=== PATIENT | female | born 1940 | race Caucasian/White ===

== ENCOUNTER 2017-02-11 21:51 | Observation (INO) | payer MEDICARE, BC ==
[2017-02-11] MEDS ORDERED: SODIUM CHLORIDE 0.9% 1000ML 1,000 ML IV SCH ×2 (22:00→23:45)
[2017-02-11 22:22] LABS: BASOPHILS % (AUTO) 1 % (0-3); EOSINOPHILS % (AUTO) 2 % (0-9); HEMATOCRIT 34 % (35-47); MEAN CORPUSCULAR HGB CONC 35.6 gm/dl (32.0-36.0); MEAN CORPUSCULAR VOLUME 82 fL (81-99); MONOCYTES % (AUTO) 6.6 % (0-12); NEUTROPHILS % (AUTO) 77.1 % (37-80)
[2017-02-11 22:37] LABS: CALCIUM 8.6 mg/dl (8.5-10.1); MAGNESIUM 1.4 mg/dl (1.8-2.4); POTASSIUM 3.5 mMol/L (3.5-5.1)
[2017-02-11] MEDS ORDERED: MAGNESIUM SULFATE 1 GM/2 ML SOL IV ONE (23:04)
[2017-02-12 01:22] VITALS: BP 137/75; PULSE 72; RESP 16; TEMP 97.5; O2SAT 92
[2017-02-12 08:59] LABS: BASOPHILS % (AUTO) 1 % (0-3); EOSINOPHILS % (AUTO) 2 % (0-9); HEMATOCRIT 38 % (35-47); MEAN CORPUSCULAR HGB CONC 34.7 gm/dl (32.0-36.0); MEAN CORPUSCULAR VOLUME 84 fL (81-99); MONOCYTES % (AUTO) 5.9 % (0-12); NEUTROPHILS % (AUTO) 73.6 % (37-80)
[2017-02-12] MEDS ORDERED: METOPROLOL SUCCINATE 50 MG ER TAB PO SCH (09:00)
[2017-02-12] MEDS ORDERED: SERTRALINE HYDROCHLORIDE 50 MG TAB PO SCH (09:00)
[2017-02-12] MEDS ORDERED: METFORMIN HYDROCHLORIDE 500 MG TAB PO SCH (09:00)
[2017-02-12] MEDS ORDERED: NOVOLOG FLEXPEN SC SCH (09:00)
[2017-02-12] MEDS ORDERED: GLIMEPIRIDE 2 MG TAB PO SCH (09:00)
[2017-02-12 09:17] LABS: CALCIUM 8.5 mg/dl (8.5-10.1); GLOM FILT RATE 79 mL/min (>60); POTASSIUM 4.2 mMol/L (3.5-5.1); SODIUM 141 mMol/L (136-145)
[2017-02-12] MEDS ORDERED: INSULIN GLARGINE, RECOMBINAN 100 U/ML SOL SC SCH (21:00)
== END 2017-02-12 14:40 | disposition home or self-care (01) | DRG 948 ==
LOC: ED 21:51 → ACUTE CARE 23:29
PROVIDERS: ADMIT Family Medicine; ATTEND Family Medicine
DX: R53.1 Weakness (principal); E86.0 Dehydration; E11.9 Type 2 diabetes mellitus without complications; Z79.4 Long term (current) use of insulin; R07.89 Other chest pain; I10 Essential (primary) hypertension
CPT/HCPCS: 36415; 80048; 80053; 82962; 83735; 84100; 84484; 85025; 93005; 99284; J1817; J3475; J1815